=== PATIENT | male | born 1995 | race Caucasian/White ===

== ENCOUNTER 2023-03-23 13:33 | Emergency (ER) | payer OTHER ==
[~2023-03-23] VITALS: Ht 160 cm; Wt 63.6 kg
[~2023-03-23 13:33] MED LIST: AMOXICILLIN 50500 MG PO; ILOTYCIN5 MG/GM OP; PERCOCET 325 MG1 TA2 PO
[2023-03-23 13:45] VITALS: BP 125/84; TEMP 98
[2023-03-23] MEDS ORDERED: NORCO 325 MG-51 TAB PO (14:10)
[2023-03-23] MEDS ORDERED: AMOXICILLIN 8751 TAB PO (14:10)
[2023-03-23 14:18] VITALS: PULSE 102
== END 2023-03-23 14:18 | disposition home or self-care (01) ==
LOC: COL.ER 13:33
DX: K08.89 Other specified disorders of teeth and supporting structures (principal); F17.210 Nicotine dependence, cigarettes, uncomplicated; F17.290 Nicotine dependence, other tobacco product, uncomplicated